=== PATIENT | female | born 1945 | race Native Hawaiian/Other Pacific Islander ===

== ENCOUNTER 2019-03-05 18:27 | Emergency (ER) | payer OTHER ==
[~2019-03-05] VITALS: Ht 162.6 cm; Wt 44.0 kg
[2019-03-05 19:08] LABS: PLATELET COUNT 309 K/uL (152-353)
[2019-03-05 19:15] LABS: POTASSIUM 3.8 mmol/L (3.6-5.2)
[2019-03-05 20:30] VITALS: BP 121/56; TEMP 98.1
[2019-03-05] MEDS ORDERED: CERTAVITE/ANTIOXIDAN PO (21:45)
[2019-03-05] MEDS ORDERED: AMLODIPINE BESYLATE PO (21:45)
[2019-03-05] MEDS ORDERED: FLUC150T PO (21:47)
[2019-03-05] MEDS ORDERED: EUTHYROX75 MCG PO (21:48)
[2019-03-05] MEDS ORDERED: [UNRECOGNIZED DRUG - CODE] PO (21:49)
[2019-03-05] MEDS ORDERED: CLARITIN10 MG PO (21:49)
[2019-03-05] MEDS ORDERED: ELIQUIS5 MG PO (21:50)
[2019-03-05] MEDS ORDERED: LIPITOR10 MG PO (21:51)
[2019-03-05] MEDS ORDERED: DONEPEZIL HYDRO10 M1 PO (21:52)
[2019-03-05] MEDS ORDERED: MIRTAZAPINE7.5 MG PO (21:52)
[2019-03-05] MEDS ORDERED: DULCOLAX10 MG RE (21:53)
[2019-03-05] MEDS ORDERED: FLUO10CA2 PO (21:54)
[2019-03-05] MEDS ORDERED: IBUPROFEN 200200 MG PO (21:54)
== END 2019-03-05 20:30 | disposition other institution (70) ==
LOC: ED 18:37
PROVIDERS: Emergency Medicine
DX: F41.8 Other specified anxiety disorders (principal); R45.1 Restlessness and agitation; F03.90 Unspecified dementia, unspecified severity, without behavioral disturbance, psychotic disturbance, mood disturbance, and anxiety; Z04.6 Encounter for general psychiatric examination, requested by authority
CPT/HCPCS: 36415; 80053; 85027; 93005; 99285